=== PATIENT | female | born 1990 | race Caucasian/White ===

== ENCOUNTER 2016-11-22 16:21 | Emergency (ER) | payer OTHER ==
[~2016-11-22] VITALS: Ht 157.5 cm; Wt 73.1 kg
[2016-11-22 16:33] VITALS: BP 124/86
[2016-11-22] MEDS ORDERED: MOTRIN600 MG PO (18:13)
[2016-11-22] MEDS ORDERED: ULTRAM50 MG PO (18:13)
[2016-11-22 18:17] LABS: ADD MIUA? NO; BILIRUBIN NEGATIVE; BLOOD NEGATIVE; COLOR YELLOW ((YELLOW)); GLUCOSE (STRIP) NEGATIVE; KETONES NEGATIVE; LEUKOCYTES NEGATIVE; NITRITE NEGATIVE; PROTEIN (STRIP) NEGATIVE; SPECIFIC GRAVITY 1.019 (1.000-1.030); UROBILINOGEN 0.2 MG/DL (0.2-1.0)
== END 2016-11-22 18:25 | disposition home or self-care (01) ==
LOC: EME 16:21 → EXP 16:21
PROVIDERS: Nurse Practitioner Family
DX: S39.012A Strain of muscle, fascia and tendon of lower back, initial encounter (principal); M54.16 Radiculopathy, lumbar region; F17.200 Nicotine dependence, unspecified, uncomplicated
CPT/HCPCS: 72100; 72220; 81003; 99281; 99282; J1885

== ENCOUNTER 2017-01-24 16:12 | Emergency (ER) | payer OTHER ==
[~2017-01-24] VITALS: Ht 157.5 cm; Wt 73.9 kg
[~2017-01-24 16:12] MED LIST: MOTRIN600 MG PO; ULTRAM50 MG PO
[2017-01-24] MEDS ORDERED: PEN-VEE K,VEET500 MG PO (18:18)
[2017-01-24] MEDS ORDERED: NAPROSYN500 MG PO (18:18)
[2017-01-24] MEDS ORDERED: DIFLUCAN150 MG PO (18:18)
[2017-01-24] MEDS ORDERED: ULTRAM50 MG PO (18:57)
[2017-01-24 19:04] VITALS: BP 138/89
== END 2017-01-24 19:05 | disposition home or self-care (01) ==
LOC: RME 16:12 → EME 16:12 → RME 19:05
DX: K02.9 Dental caries, unspecified (principal); K04.7 Periapical abscess without sinus; R11.0 Nausea; F17.200 Nicotine dependence, unspecified, uncomplicated
CPT/HCPCS: 99281; 99283; J1885

== ENCOUNTER 2017-06-13 08:54 | Emergency (ER) | payer OTHER ==
[~2017-06-13] VITALS: Ht 157.5 cm; Wt 70.0 kg
[~2017-06-13 08:54] MED LIST changes: +DIFLUCAN150 MG PO; +NAPROSYN500 MG PO; +PEN-VEE K,VEET500 MG PO
[2017-06-13 09:51] LABS: EOSINOPHIL (%) 0.2 % (0-5); IMMATURE GRANULOCYTE (%) 0.3 % (0.0-0.7); INSTRUMENT ABS NEUTROPHIL CT 10.8 K/uL; MCH 29.2 PG (29.0-34.0); MCHC 32.2 G/DL (30.0-36.0); MCV 90.7 FL (83-99); MEAN PLAT.VOLUME 11.4 uM^3 (9.5-12.4); MONOCYTE (%) 10.5 % (3-12); MONOCYTE COUNT 1.4 K/uL (0-0.8); NEUTROPHIL (%) 81.4 % (45-76); NEUTROPHIL COUNT 10.8 K/uL (1.8-6.4); PLATELET COUNT 367 K/uL (156-360); RBC DIS.WIDTH-CV 13.2 % (11.8-14.6); RED BLOOD COUNT 3.97 M/uL (3.80-5.20); WHITE BLOOD COUNT 13.2 K/uL (4.1-10.2)
[2017-06-13 10:02] LABS: CHLORIDE 106 mEq/L (99-109); POTASSIUM 3.8 mEq/L (3.7-5.4); SODIUM 138 mEq/L (136-147)
[2017-06-13 10:04] LABS: GLUCOSE 118 mg/dL (70-99)
[2017-06-13 10:05] LABS: ANION GAP 12 MEQ/L (2-14)
[2017-06-13 10:06] LABS: TOTAL BILIRUBIN 0.5 mg/dL (0.0-1.0)
[2017-06-13 10:07] LABS: ALKALINE PHOSPHATASE 81 IU/L (3-129)
[2017-06-13 10:08] LABS: GFR ESTIMATE (CALCULATED) > 59 mL/min/
[2017-06-13 10:09] LABS: UREA NITROGEN (BUN) 9 mg/dL (9-23)
[2017-06-13 10:17] LABS: QUANTITATIVE HCG < 4.0 MIU/ML
[2017-06-13 11:01] LABS: ADD MIUA? YES; BILIRUBIN NEGATIVE; BLOOD SMALL; COLOR YELLOW ((YELLOW)); GLUCOSE (STRIP) NEGATIVE; KETONES NEGATIVE; LEUKOCYTES LARGE; NITRITE POSITIVE; PROTEIN (STRIP) 100; SPECIFIC GRAVITY 1.013 (1.000-1.030)
[2017-06-13 11:14] LABS: BACTERIA 3+ /HPF; CALCIUM OXALATE CRYSTALS 3+ /HPF; EPITHELIAL CELLS RARE /HPF; MUCUS 1+ /LPF; RED BLOOD CELLS TNTC /HPF (0-5); UCUL ADDED? YES; WHITE BLOOD CELLS TNTC /HPF (0-5); WHITE BLOOD CELLS CLUMP MANY /HPF (0-5)
[2017-06-13] MEDS ORDERED: KEFLEX500 MG PO (13:22)
[2017-06-13] MEDS ORDERED: MOTRIN600 MG PO (13:22)
[2017-06-13 13:39] VITALS: BP 108/47
[2017-06-16 12:09] LABS: CHLAMYDIA TRACHOMATIS NEGATIVE; NEISSERIA GONORRHOEAE NEGATIVE
== END 2017-06-13 13:40 | disposition home or self-care (01) ==
LOC: EME 08:54
PROVIDERS: Emergency Medicine
DX: N12 Tubulo-interstitial nephritis, not specified as acute or chronic (principal); N93.9 Abnormal uterine and vaginal bleeding, unspecified; R10.84 Generalized abdominal pain; R51 Headache; R00.0 Tachycardia, unspecified; F17.200 Nicotine dependence, unspecified, uncomplicated
CPT/HCPCS: 74176; 76856; 80053; 81003; 84702; 85025; 87077; 87086; 87186; 87210; 87491; 87591; 99281; 99285; J0696; J1885; J7030; J7050

== ENCOUNTER 2017-09-10 12:32 | Emergency (ER) | payer OTHER ==
[~2017-09-10] VITALS: Ht 157.5 cm; Wt 73.0 kg
[~2017-09-10 12:32] MED LIST changes: +KEFLEX500 MG PO
[2017-09-10] MEDS ORDERED: MOTRIN600 MG PO (14:31)
[2017-09-10] MEDS ORDERED: FLEXERIL10 MG PO (14:31)
[2017-09-10 15:19] VITALS: BP 122/91
== END 2017-09-10 15:20 | disposition home or self-care (01) ==
LOC: EME 12:32 → RME 12:32
DX: S63.612A Unspecified sprain of right middle finger, initial encounter (principal); S93.501A Unspecified sprain of right great toe, initial encounter; S20.219A Contusion of unspecified front wall of thorax, initial encounter; F41.9 Anxiety disorder, unspecified; F17.200 Nicotine dependence, unspecified, uncomplicated; V47.5XXA Car driver injured in collision with fixed or stationary object in traffic accident, initial encounter; Y92.410 Unspecified street and highway as the place of occurrence of the external cause
CPT/HCPCS: 71020; 73140; 73630; 99281; 99283

== ENCOUNTER 2017-09-13 20:22 | Emergency (ER) | payer OTHER ==
[~2017-09-13] VITALS: Ht 157.5 cm; Wt 75.7 kg
[~2017-09-13 20:22] MED LIST changes: +FLEXERIL10 MG PO
[2017-09-13 20:38] VITALS: BP 124/90
== END 2017-09-14 01:00 | disposition left against medical advice (07) ==
LOC: EME 20:22
DX: T76.21XA Adult sexual abuse, suspected, initial encounter (principal); Z53.21 Procedure and treatment not carried out due to patient leaving prior to being seen by health care provider
CPT/HCPCS: 81003; 84703

== ENCOUNTER 2018-02-11 11:50 | Emergency (ER) | payer OTHER ==
[~2018-02-11] VITALS: Ht 157.5 cm; Wt 76.5 kg
[2018-02-11 12:36] LABS: BASOPHIL (%) 0.9 % (0-1); BASOPHIL COUNT 0.1 K/uL (0-0.1); EOSINOPHIL (%) 1.2 % (0-5); EOSINOPHIL COUNT 0.1 K/uL (0-0.3); HEMATOCRIT 43.6 % (36.0-46.0); HEMOGLOBIN 14.4 G/DL (11.9-15.5); IMMATURE GRANULOCYTE (%) 0.1 % (0.0-0.7); LYMPHOCYTE (%) 17.8 % (15-42); LYMPHOCYTE COUNT 1.6 K/uL (1.0-2.8); MCH 30.5 PG (29.0-34.0); MCV 92.4 FL (83-99); MONOCYTE (%) 7.8 % (3-12); MONOCYTE COUNT 0.7 K/uL (0-0.8); NEUTROPHIL (%) 72.2 % (45-76); NEUTROPHIL COUNT 6.5 K/uL (1.8-6.4); PLATELET COUNT 271 K/uL (156-360); RBC DIS.WIDTH-CV 14.6 % (11.8-14.6); RBC DIS.WIDTH-SD 49.6 % (39-53); RED BLOOD COUNT 4.72 M/uL (3.80-5.20); WHITE BLOOD COUNT 8.9 K/uL (4.1-10.2)
[2018-02-11 12:44] LABS: AMYLASE 69 IU/L (1-118); CHLORIDE 108 mEq/L (99-109); POTASSIUM 4.1 mEq/L (3.7-5.4); SODIUM 139 mEq/L (136-147)
[2018-02-11 12:46] LABS: GLUCOSE 84 mg/dL (70-99)
[2018-02-11 12:49] LABS: SERUM ETHYL ALCOHOL < 10 mg/dL
[2018-02-11 12:50] LABS: CREATININE 0.7 mg/dL (0.6-1.3); GFR ESTIMATE (CALCULATED) > 59 mL/min/
[2018-02-11 12:51] LABS: UREA NITROGEN (BUN) 14 mg/dL (9-23)
[2018-02-11 12:53] LABS: LIPASE 28 U/L (1.0-51.0)
[2018-02-11 12:59] LABS: QUANTITATIVE HCG < 4.0 MIU/ML
[2018-02-11] MEDS ORDERED: ULTRAM50 MG PO (14:16)
[2018-02-11 15:20] VITALS: BP 113/89
== END 2018-02-11 15:21 | disposition home or self-care (01) ==
LOC: EME 11:50 → TRA 11:50
PROVIDERS: Emergency Medicine
DX: S20.211A Contusion of right front wall of thorax, initial encounter (principal); V86.55XA Driver of 3- or 4- wheeled all-terrain vehicle (ATV) injured in nontraffic accident, initial encounter; M51.27 Other intervertebral disc displacement, lumbosacral region
CPT/HCPCS: 71260; 74177; 80048; 81003; 82150; 83690; 84702; 85025; 86850; 86900; 86901; 99281; 99285; G0480

== ENCOUNTER → 2018-03-12 | Outpatient (CLI) | payer OTHER | END | disposition home or self-care (01) | LOC: RAD 19:04 | DX: R10.32 Left lower quadrant pain (principal) | CPT/HCPCS: 76856 ==